=== PATIENT | male | born 1935 | race Two or more races ===

== ENCOUNTER 2017-09-19 15:02 | Emergency (ER) | payer OTHER, MEDICAID ==
[~2017-09-19] VITALS: Ht 162.6 cm; Wt 72.6 kg
--- NOTE | 2017-09-19 15:10 | NUR ---
PT BIBRA FROM HOME TO ER BED 10 C/O LOWER BACK , L HIP AND R ARM PAIN S/P SLIP AND FALL WHILE TRYING TO STAND UP. PT DENIES HEAD TRAUMA. PT IS AAOX3. PER REPORT AMBULATORY AT THE SCENE. PLACED ON MONITOR. NAD NOTED. AWAITING MD CANDELARIA.
--- NOTE | 2017-09-19 15:27 | NUR ---
DR MORENO AT BEDSIDE FOR EVAL.
--- NOTE | 2017-09-19 15:35 | NUR ---
RADIOLOGY AT BEDSIDE FOR PELVIC XRAY.
--- NOTE | 2017-09-19 17:39 | NUR ---
ambulatory w/ steady gait. Patient discharged to home in stable condition. Written and verbal after care instructions given. Family verbalizes understanding of instruction.
[2017-09-19 17:40] VITALS: BP 142/77
== END 2017-09-19 17:41 | disposition home or self-care (01) ==
LOC: ER 15:06
DX: S70.02XA Contusion of left hip, initial encounter (principal); E11.9 Type 2 diabetes mellitus without complications; W01.0XXA Fall on same level from slipping, tripping and stumbling without subsequent striking against object, initial encounter; Y93.89 Activity, other specified; Y92.89 Other specified places as the place of occurrence of the external cause; Y99.8 Other external cause status
CPT/HCPCS: 72170; 82962; 99283; A4606; Z7610